=== PATIENT | female | born 1945 ===

== ENCOUNTER 2018-04-07 17:44 | Emergency (ER) | payer MEDICARE, OTHER ==
[2018-04-07 17:49] VITALS: BMI 32.9
[2018-04-07 17:56] VITALS: PULSE 74; TEMP 98.3
[2018-04-07] MEDS ORDERED: Tdap Vaccine 0.5 ml Vial (10-64 yrs) IM ONE ×2 (19:18→19:41)
--- NOTE | 2018-04-07 19:35 | C.PDOC ---
History Of Present Illness 72 y/o female with multiple medical problems, (arrhythmia?, dm, asthma) on eliquis for unknown reason, brought to ed by sister s/p fall in street just prior to arrival. pt denies cp, sob, dizziness prior to fall, unclear exactly why she fell. sister reports she was in front of patient, did not see, denies pt had any loc, was awake after fall. pt c/o pain to left side face ands lip. denies cp, sob, numbness, tingling. - HPI Time Seen by Provider: 04/07/18 18:46 Chief Complaint (Nursing): Trauma History Per: Patient History/Exam Limitations: no limitations Onset/Duration Of Symptoms: Hrs (1) Injury Occurred (Timing): Just Before Arrival Past Medical History Reviewed: Historical Data, Nursing Documentation, Vital Signs Vital Signs: Last Vital Signs Temp 98.3 F 04/07/18 17:48 Pulse 74 04/07/18 17:48 Resp 20 04/07/18 17:48 BP 131/79 04/07/18 17:48 Pulse Ox 94 L 04/07/18 17:48 - Medical History PMH: Asthma, Emphysema, HTN Other PMH: irregular heartbeat Family History: States: Unknown Family Hx - Social History Hx Alcohol Use: No Hx Substance Use: No - Immunization History Hx Tetanus Toxoid Vaccination: No Hx Influenza Vaccination: No Hx Pneumococcal Vaccination: No Review Of Systems Constitutional: Positive for: Other (pain to left side of face and lip ). Negative for: Fever, Chills Eyes: Positive for: Pain (periorbital) ENT: Negative for: Mouth Pain Cardiovascular: Negative for: Chest Pain Respiratory: Negative for: Cough, Shortness of Breath Gastrointestinal: Negative for: Nausea, Vomiting, Abdominal Pain Musculoskeletal: Positive for: Hand Pain (bilateral). Negative for: Neck Pain, Back Pain Skin: Positive for: Bruising Neurological: Negative for: Weakness, Numbness, Dizziness, Other (LOC) Physical Exam - Physical Exam Appears: Non-toxic, No Acute Distress Skin: Warm, Dry, Ecchymosis (meidal left eye) Head: No Atraumatic, Tenderness (to forehead and left upper orbit), Swelling (left forehead ), Laceration (1.5 cm; located on left upper lid ) Eye(s): bilateral: PERRL, EOMI, left: Other (orbital tenderness, no step off) Ear(s): Bilateral: Normal (no hemotympanu, no battles sign) Nose: No Epistaxis, No Deformity, No Septal Hematoma Oral Mucosa: Moist Tongue: Normal Appearing Lips: Swelling (left lip lower ), Contusion, Laceration (verticle .5 cm; shallow to left upper lip) Teeth: Normal Dentition, No Loose, Other (stable) Gingiva: Normal Appearing Neck: No Midline Cervical Tenderness, No Paracervical Tenderness Chest: No Deformity, No Tenderness Cardiovascular: Rhythm Regular, No Murmur Respiratory: No Decreased Breath Sounds, No Wheezing Gastrointestinal/Abdominal: Soft, No Tenderness Back: No CVA Tenderness, No Vertebral Tenderness Extremity: Normal ROM (x4), Tenderness (to abraded sites), Capillary Refill (<2 ), Other (multiple abrasions to left hand on thenar eminence and pinky, abrasion right pinky, abrasion left knee. from all joints. ) Pulses: Left Radial: Normal, Right Radial: Normal, Left Dorsalis Pedis: Normal, Right Dorsalis Pedis: Normal Neurological/Psych: Oriented x3, Normal Speech, Normal Cognition, Normal Motor, Normal Sensation, Other (neuro intact ) ED Course And Treatment - Laboratory Results Result Diagrams: 04/07/18 20:09 04/07/18 20:09 ECG: Interpreted By Me, Viewed By Al ECG Rhythm: Sinus Rhythm ECG Interpretation: Normal Interpretation Of ECG: normal axis, anterior infarct Rate From EC O2 Sat by Pulse Oximetry: 94 (RA) Pulse Ox Interpretation: Normal - CT Scan/US Orbits/facial Other Rad Studies (CT/US): Read By Radiologist, Radiology Report Reviewed CT/US Interpretation: IMPRESSION: No acute osseous abnormality. Mucoperiosteal thickening within the paranasal sinuses as described. Cervical Spine Other Rad Studies (CT/US): Read By Radiologist, Radiology Report Reviewed CT/US Interpretation: IMPRESSION: No acute cervical spine abnormality. Head Other Rad Studies (CT/US): Read By Radiologist, Radiology Report Reviewed CT/US Interpretation: IMPRESSION: 1. 72-year-old female, status post fall on left side of face. 2. The cortical sulci are not as [id number], as expected. 3. The size of the ventricular system is small for a 72-year-old female. 4. There is no generalized low attenuation of the brain. There is no midline shift. No asymmetric mass effect, subdural collections, or recent intracranial hemorrhage. 5. There is prominent hyperostosis interna likely co mpensates for displaying age-related involutional changes. 6. No retro-orbital hematoma. No subdural collections, or recent intracranial hemorrhage. Medical Decision Making Medical Decision Making: Impression: trip and fall injury Plans: -- CT cervical spine -- CT head -- CT orbits/facial -- EKG -- chem labs -- blood work -- glucose POC -- tetanus booster -- tylenol 2205 ct results discussed with patient and sister via intepreter [id number]; no acute ct findings. labs normal. pt to be discharged; pt should have someone stay with her overnight to check. pt given copies of ct scan to show pmd on monday. pt advised steristrips will fall off on own. more swelling and bruising likely left eye. tylenol for pain. Disposition Counseled Patient/Family Regarding: Studies Performed, Diagnosis, Need For Followup, Rx Given - Disposition Referrals: Jimmy Clancy [Staff Provider] - Romel Eller [Staff Provider] - Disposition: HOME/ ROUTINE Disposition Time: 22:09 Condition: GOOD Additional Instructions: Tylenol para el dolor si es necesario. Compresas fras en la frente y el labio stacey varias veces al da para disminuir la hinchazn. Bacitrcin a todas las abrasiones 2 veces al azul. Seguimiento con el Dr. Campbell el evangelist. Derian rept ct [orts con usted. Haz que alguien te despierte varias veces para asegurarte de que ests silver. Asegrese de jose luis seguimiento al Dr. Clancy la prxima semana, regrese a la yesi de emergencias por cualquier dolor de toribio marvin, comportamiento inusual, convulsiones, vmitos o cualquier otra queja. Anita un seguimiento con el oculista la prxima semana tambin. Tylenol for pain if needed. Cold compresses to left forhead and lip several times a day to decrease swelling. Bacitrcin to all abrasions 2 tuimes a day. Follow up with Dr Campbell on Monday. Bring ct rep[orts with you. Have some one wake you up several times tongiht to make sure you're ok. Make sure to follow up withi Dr Clancy next week, Return to ER for any severe headache, unusual behavior, seizure, vomiting or any other complaint. Follow up with eye doctor next week as well. Prescriptions: Acetaminophen [Tylenol 325mg tab] 650 mg PO Q6 #30 tab Bacitracin OINT 1 applic TOP BID #1 tube Instructions: Closed Head Injury (DC), Skin Abrasions (DC) Forms: Gen Discharge Inst Sinhala, [email or web address] (Sinhala) - Clinical Impression Clinical Impression: Fall from slip, trip, or stumble, Closed head injury, Abrasions of multiple sites - PA / SHOP FITTER / Resident Statement / has reviewed & agrees with the documentation as recorded. - Scribe Statement The provider has reviewed the documentation as recorded by the Tony Delagdo Do All medical record entries made by the Brieibbill were at my direction and personally dictated by me. I have reviewed the chart and agree that the record accurately reflects my personal performance of the history, physical exam, medical decision making, and the department course for this patient. I have also personally directed, reviewed, and agree with the discharge instructions and disposition.
[2018-04-07 20:12] LABS: BASO # 0.1 K/uL (0.0-0.2); BASO % 0.7 % (0.0-2.0); EOS # 1.3 K/uL (0.0-0.7); EOS % 13.9 % (0.0-4.0); HEMOGLOBIN 13.1 g/dL (11.0-16.0); LYMPH # 2.4 K/uL (1.0-4.3); LYMPH % 26.2 % (20.0-40.0); MEAN CELL VOLUME 94.6 fL (81.0-99.0); MEAN CORPUSCULAR HEMOGLOBIN 31.4 pg (27.0-31.0); MEAN CORPUSCULAR HGB CONC 33.2 g/dL (33.0-37.0); MEAN PLATELET VOLUME 9.7 fL (7.2-11.7); MONO # 0.7 K/uL (0.0-0.8); MONO % 7.8 % (0.0-10.0); NEUT # 4.8 K/uL (1.8-7.0); NEUT % 51.4 % (50.0-75.0); RBC 4.18 Mil/uL (3.80-5.20); RED CELL DISTRIBUTION WIDTH 14.7 % (11.5-14.5); WHITE BLOOD COUNT 9.3 K/uL (4.8-10.8)
[2018-04-07 20:30] LABS: ALB/GLOB RATIO 1.1 (1.0-2.1); ALBUMIN 4.5 g/dL (3.5-5.0); ALT/SGPT 27 U/L (9-52); AST/SGOT 35 U/L (14-36); BLOOD UREA NITROGEN 22 mg/dL (7-17); CALCIUM 9.7 mg/dl (8.6-10.4); GFR NON-AFRICAN AMERICAN 44
[2018-04-07 21:00] VITALS: BP 132/62; RESP 72
[2018-04-07 21:03] VITALS: O2SAT 94
--- NOTE | 2018-04-07 21:22 | CT ---
Date of service: 04/07/2018 PROCEDURE: CT HEAD WITHOUT CONTRAST. HISTORY: fall, left side face injury COMPARISON: None available. TECHNIQUE: Axial computed tomography images were obtained through the head/brain without intravenous contrast. Radiation dose: Total exam DLP = 903.72 mGy-cm. This CT exam was performed using one or more of the following dose reduction techniques: Automated exposure control, adjustment of the mA and/or kV according to patient size, and/or use of iterative reconstruction technique. FINDINGS: HEMORRHAGE: No intracranial hemorrhage. BRAIN: No mass effect or edema. Scattered focal lucencies in the subcortical and periventricular white matter suggestive for chronic microvascular ischemic change. VENTRICLES: Unremarkable. No hydrocephalus. CALVARIUM: Unremarkable. PARANASAL SINUSES: Unremarkable as visualized. No significant inflammatory changes. Hypoplastic frontal sinus. MASTOID AIR CELLS: Unremarkable as visualized. No inflammatory changes. OTHER FINDINGS: Soft tissue swelling overlying the left frontal cranium and left periorbital regions. Intracranial arterial calcifications. IMPRESSION: No acute intracranial abnormality. Soft tissue swelling overlying the left frontal cranium and left periorbital regions. Chronic microvascular ischemic changes. If symptoms persists, consider correlation with MRI. A preliminary report was generated by [employer] at 9:04 p.m. on 04/07/2018.
--- NOTE | 2018-04-08 07:48 | CT ---
CT maxillofacial HISTORY: Injury. COMPARISON: None available. TECHNIQUE: Multiple contiguous axial images were performed through the maxillofacial region without the use of intravenous contrast. Subsequently, sagittal and coronal reformatted images were obtained. This CT exam was performed using one or more of the following dose reduction techniques: Automated exposure control, adjustment of the mA and/or kV according to patient size, and/or use of iterative reconstruction technique. Findings: Prominent soft tissue swelling overlying the left frontal and periorbital regions. Mucosal thickening and hypertrophy of the bilateral maxillary sinuses as well as the ethmoid air cells. Hypoplastic frontal sinus. Bilateral mastoid air cells are preserved. Orbital globes are preserved. No evidence of acute displaced fracture. Degenerative changes in the cervical spine. Mild leftward nasal septal deviation. Mild mucosal thickening and hypertrophy of the inferior nasal turbinates. Impression: No evidence of acute displaced fracture. Soft tissue swelling overlying the left frontal and periorbital regions. Sinus mucosal disease as above. A preliminary report was generated at 9 p.[address]. on 04/07/[address] Nelson Hewitt from [employer].
--- NOTE | 2018-04-08 09:27 | CT ---
CT cervical spine HISTORY: Injury. COMPARISON: None available Technique: Multiple contiguous axial images were performed through the cervical spine without the use of intravenous contrast. Subsequently, sagittal coronal reformatted images were obtained. This CT exam was performed using one or more of the following dose reduction techniques: Automated exposure control, adjustment of the mA and/or kV according to patient size, and/or use of iterative reconstruction technique. Findings: Mild levoscoliotic curvature of the cervical spine. Moderate to severe uncovertebral joint and facet hypertrophy at the right aspect of the C2-3, C3-4 and C4-5 vertebral bodies. No significant prevertebral soft tissue swelling. Atherosclerotic calcification within the aorta. Mild narrowing of the atlantodental interval with sclerosis. No evidence of acute displaced fracture or dislocation. Multilevel posterior disc bulges which would be better evaluated with cervical spine MRI if clinically indicated. Biapical pleural thickening. Mild mucosal thickening of the maxillary sinuses. Partial sclerosis of the right mastoid air cells Impression: Degenerative changes. If pain persists, consider MRI. A preliminary report was generated at 9:02 p.m. on 04/07/[address] Nelson Hewitt from [employer].
--- NOTE | 2018-04-10 19:26 | CARD ---
APPROVED REPORT Date of service: 04/07/2018 EKG Measurement Heart [id number] <Conclusion> Normal sinus rhythm Anterior infarct, age undetermined Abnormal ECG
== END 2018-04-07 22:23 | disposition home or self-care (01) ==
LOC: C.ER 17:44
DX: S01.112A Laceration without foreign body of left eyelid and periocular area, initial encounter (principal); S01.511A Laceration without foreign body of lip, initial encounter; S60.416A Abrasion of right little finger, initial encounter; S80.212A Abrasion, left knee, initial encounter; W18.30XA Fall on same level, unspecified, initial encounter; Y92.410 Unspecified street and highway as the place of occurrence of the external cause